=== PATIENT | male | born 1990 | race Caucasian/White ===

== ENCOUNTER 2021-07-15 18:56 | Emergency (ER) | payer MEDICAID, OTHER ==
[~2021-07-15] VITALS: Ht 167.6 cm; Wt 90.7 kg
[~2021-07-15 18:56] MED LIST: HYDR-5191 PO
--- NOTE | 2021-07-15 19:01 | NUR ---
Judy allen in [facility] - 07/15/21 at 1903 by MEDNATALEE TO ABDELRAHMAN STEWART C
--- NOTE | 2021-07-15 19:01 | NUR ---
BIBA BLS TO ER [facility]
[2021-07-15 19:13] VITALS: BP 152/70
[2021-07-15] MEDS ORDERED: IBUPROFEN 600 MG TAB PO ONE (19:15)
[2021-07-15] MEDS ORDERED: IBUP-2213 PO (19:51)
--- NOTE | 2021-07-15 20:00 | NUR ---
PROVIDED PATIENT WITH MARTHA GÓMEZ
--- NOTE | 2021-07-15 20:07 | NUR ---
LARISSA MAYER LOOKED AT [facility] AND APPROVED D/C
[2021-07-15 20:10] VITALS: BP 148/71
--- NOTE | 2021-07-15 20:11 | NUR ---
Patient discharged with v/s stable. Written and verbal after care instructions given and explained. Patient verbalized understanding. Ambulatory with steady gait. All questions addressed prior to discharge. Advised to follow up with PMD.
== END 2021-07-15 20:11 | disposition home or self-care (01) ==
LOC: MED 18:56
DX: S93.401A Sprain of unspecified ligament of right ankle, initial encounter (principal); X50.0XXA Overexertion from strenuous movement or load, initial encounter; Y93.89 Activity, other specified; Y92.89 Other specified places as the place of occurrence of the external cause; Y99.8 Other external cause status
CPT/HCPCS: 73610; 73630; 99284

== ENCOUNTER 2022-02-15 10:30 | Emergency (ER) | payer MEDICAID ==
[~2022-02-15] VITALS: Ht 167.6 cm; Wt 95.3 kg
[~2022-02-15 10:30] MED LIST changes: +IBUP-2213 PO
--- NOTE | 2022-02-15 10:30 | NUR ---
DINAH SIFUENTES VIA GURNEY TO BED 03.
[2022-02-15 10:41] VITALS: BP 165/98
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
[2022-02-15] MEDS ORDERED: IBUPROFEN 400 MG TAB PO ONE (11:35)
[2022-02-15] MEDS ORDERED: ceFAZolin 1,000 MG VIAL IM ONE (11:35)
[2022-02-15] MEDS ORDERED: BACITRACIN OINT 500 UNITS/GM PKT TP ONE (11:35)
[2022-02-15] MEDS ORDERED: WATER STERILE 10 ML MC ONE (11:39)
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
--- NOTE | 2022-02-15 12:03 | NUR ---
PT TAKEN TO CT VIA WC
[2022-02-15] MEDS ORDERED: IBUP-1842 PO (12:40)
[2022-02-15] MEDS ORDERED: CEPH-588 PO (12:40)
--- NOTE | 2022-02-15 12:50 | NUR ---
Patient discharged with v/s stable. Written and verbal after care instructions given. Patient alert, oriented and verbalized understanding of instructions. Ambulatory with steady gait. All questions addressed prior to discharge. ID band removed. Patient advised to follow up with PMD. Rx of KEFLEX AND IBUPROFEN given. Opportunity to ask questions provided and answered.
== END 2022-02-15 12:50 | disposition home or self-care (01) ==
LOC: MED 10:30
DX: S01.311A Laceration without foreign body of right ear, initial encounter (principal); S00.211A Abrasion of right eyelid and periocular area, initial encounter; S60.512A Abrasion of left hand, initial encounter; S60.511A Abrasion of right hand, initial encounter; Z88.8 Allergy status to other drugs, medicaments and biological substances; Z79.899 Other long term (current) drug therapy; Y04.2XXA Assault by strike against or bumped into by another person, initial encounter; Y93.89 Activity, other specified; Y92.89 Other specified places as the place of occurrence of the external cause; Y99.8 Other external cause status
CPT/HCPCS: 70450; 96372; 99284; J0690